=== PATIENT | male | born 1995 | race Two or more races ===

== ENCOUNTER 2020-11-08 02:11 | Emergency (ER) | payer BC, OTHER ==
[~2020-11-08] VITALS: Ht 180.3 cm; Wt 77.1 kg
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
--- NOTE | 2020-11-08 03:13 | NUR ---
BLOOD WORK COLLECTED, SENT TO LAB.
--- NOTE | 2020-11-08 03:13 | NUR ---
COVID SWABBED, SENT TO LAB
[2020-11-08 03:22] LABS: BASOPHILS # (AUTO) 0.1 /CMM (0.0-0.2); BASOPHILS % (AUTO) 0.9 % (0.0-2.0); EOSINOPHILS % (AUTO) 0.9 % (0.0-6.0); HEMATOCRIT 44 % (39-51); LYMPHOCYTES # (AUTO) 1.8 /CMM (0.8-4.8); LYMPHOCYTES % (AUTO) 20.8 % (20.0-44.0); MEAN CORPUSCULAR HGB CONC 34 g/dl (31.0-36.0); MEAN CORPUSCULAR VOLUME 92 fL (80-96); MONOCYTES # (AUTO) 0.7 /CMM (0.1-1.30); MONOCYTES % (AUTO) 8.3 % (2.0-12.0); NEUTROPHILS % (AUTO) 69.1 % (43.0-81.0); PLATELET COUNT (AUTO) 315 /CMM (150-450); WHITE BLOOD COUNT (AUTO) 8.7 K/uL (4.3-11.0)
--- NOTE | 2020-11-08 03:23 | NUR ---
CALLED MOLECULAR BIOLOGY SCIENTIST CURTIS AGUERO FOR EVALUATION. ETA 1 HOUR
[2020-11-08 03:41] LABS: CALCIUM, SERUM 9.1 mg/dL (8.5-10.1); CARBON DIOXIDE 29 mmol/L (21-32); CHLORIDE 102 mmol/L (98-107); CREATININE 0.8 mg/dL (0.6-1.3); GLUCOSE 90 mg/dL (74-106); POTASSIUM 4.9 mmol/L (3.5-5.1); SODIUM SERUM 139 mmol/L (136-145); UREA NITROGEN, BLOOD 13 mg/dL (7-18)
[2020-11-08 03:50] LABS: ALANINE AMINOTRANSFERASE 36 U/L (12-78); ALBUMIN 4.3 g/dL (3.4-5.0); ALCOHOL, BLOOD < 3 mg/dL (0-0); ALKALINE PHOSPHATASE 56 U/L (46-116); ASPARTATE AMINOTRANSFERASE 26 U/L (15-37); BILIRUBIN,DIRECT 0.1 mg/dL (0.0-0.2); BILIRUBIN,TOTAL 0.5 mg/dL (0.2-1.0); TOTAL PROTEIN, SERUM 7.8 g/dL (6.4-8.2)
[2020-11-08 04:01] LABS: ACETAMINOPHEN < 2 ug/ml (10-30)
[2020-11-08 04:19] LABS: BILIRUBIN,URINE SMALL (NEGATIVE); COLOR,URINE YELLOW (YELLOW); LEUKOCYTE ESTERASE ,URINE NEGATIVE (NEGATIVE); NITRITE, URINE NEGATIVE (NEGATIVE); PH,URINE 6.5 (5.0-8.0); PROTEIN,URINE TRACE mg/dl (NEGATIVE); UGLUCOSE NEGATIVE (NEGATIVE)
[2020-11-08 05:12] LABS: BACTERIA,URINE None seen /HPF (None Seen); MUCUS,URINE Many /LPF (None Seen); RBC,URINE 0-2 /HPF (0-2); SQUAMOUS EPITHELIAL CELL,UR Few /HPF (None Seen); WBC,URINE 0-2 /HPF (0-3)
--- NOTE | 2020-11-08 07:42 | NUR ---
ASSESSED PT ON BED AWAKE AND ALERT, NOT IN RESPIRATORY DISTRESS, V/S STABLE, KEPT RESTED AND COMFORTABLE. WILL CONTINUE TO MONITOR.
--- NOTE | 2020-11-08 08:54 | NUR ---
mecca cooper pt dad.
--- NOTE | 2020-11-08 10:44 | NUR ---
HAND COOPER HELPER AT BEDSIDE FOR EVAL.
--- NOTE | 2020-11-08 11:05 | NUR ---
Leaf Binner consult: Leaf Binner consult requested for suicidal ideation with a plan. Patient is a 25-year-old, male. Per chart, patient was brought in by ambulance and [employer] on 11/08/20 for suicidal ideation with a plan to hang himself. SW met with patient at his bedside on the emergency department. Patient was alert and oriented x4. Patient presented anxious. SW asked patient if he has any current suicidal ideation and patient stated that he is currently feeling suicidal without a plan. Patient denies homicidal ideation. Patient agrees to voluntary inpatient psychiatric placement. SW assessed patients history of substance use and patient stated that he has a history of alcohol use. Patient stated that he was recently at a treatment center for alcohol use but was kicked out. Patient stated that he has recent alcohol use but was unable to provide SW with information regarding his frequency of use. Patient stated that his family lives in [place] and patient plans to return home after inpatient psychiatric treatment. Patient stated that he has adequate social support from his family and provided SW with contact information for his parents (Ina, mother: [phone]; Yousif, father: [phone]). Patient currently has no source of income but stated that his family supports him financially. SW assessed patients history of mental illness and patient stated that he has a history of Depression and Anxiety. Patient currently takes Lexapro. SW offered patient substance use resources for alcohol and patient declined the resource stating, I dont need them. Patient agrees to voluntary psychiatric placement. SW will follow up with this plan and fax clinicals to [facility]. PLAN: SW will fax clinicals to [facility] for voluntary inpatient psychiatric treatment. SW will follow up with nursing staff, as needed.
--- NOTE | 2020-11-08 11:10 | NUR ---
Social Insurance Analyst note: SHALA faxed clinicals to [facility] ([phone]) for voluntary inpatient psychiatric hospitalization. SHALA will continue to follow up with [facility].
--- NOTE | 2020-11-08 15:14 | NUR ---
Ice Guard Tester note: SW was notified by diabetes education coordinator, Michele, at [facility] that the patient has been accepted to [facility] ([id number] [place] [address]; ). Per diabetes education coordinator, ED staff genetic counselor to call for ambulance after 16:30. SW will continue to coordinate with nursing staff.
--- NOTE | 2020-11-08 15:14 | NUR ---
Received a call from SHALA Davis to call [facility] at 345pm and send the patient via ambulance @430pm.
--- NOTE | 2020-11-08 15:25 | NUR ---
CALLED [facility] ETA 1800 PER JANESSA
--- NOTE | 2020-11-08 16:00 | NUR ---
REPORT GIVEN TO CURTIS MANSFIELD [facility].
--- NOTE | 2020-11-08 16:35 | NUR ---
REPORT TO [phone]
--- NOTE | 2020-11-08 17:58 | NUR ---
REPORT GIVEN TO EMS FOR PT TRANSFER GOING TO [facility].
[2020-11-08 17:59] VITALS: BP 114/57
== END 2020-11-08 18:00 ==
LOC: ER 02:13
DX: R45.851 Suicidal ideations (principal); F17.200 Nicotine dependence, unspecified, uncomplicated; F32.9 Major depressive disorder, single episode, unspecified; F41.9 Anxiety disorder, unspecified; R03.0 Elevated blood-pressure reading, without diagnosis of hypertension; Z20.822 Contact with and (suspected) exposure to COVID-19
CPT/HCPCS: 36415; 80048; 80076; 80143; 80307; 80320; 81001; 85025; 87426; 99285; C9803; G0480